=== PATIENT | male | born 1950 | race Caucasian/White ===

== ENCOUNTER 2017-03-11 21:27 | Emergency (ER) | payer BC ==
[~2017-03-11] VITALS: Ht 172.7 cm; Wt 81.7 kg
[2017-03-11 21:29] VITALS: BP 151/102
[2017-03-11] MEDS ORDERED: TOBRADEX EYE DRO5 ML OP (22:34)
[2017-03-11] MEDS ORDERED: CIPROFLOXIN HC2.5 M1 OPHTHALMIC (22:35)
== END 2017-03-11 23:14 | disposition home or self-care (01) ==
LOC: ER 21:27
DX: T15.81XA Foreign body in other and multiple parts of external eye, right eye, initial encounter (principal); T15.01XA Foreign body in cornea, right eye, initial encounter; X58.XXXA Exposure to other specified factors, initial encounter; Y93.89 Activity, other specified; Y92.89 Other specified places as the place of occurrence of the external cause; Y99.9 Unspecified external cause status